=== PATIENT | female | born 2000 | race Caucasian/White ===

== ENCOUNTER 2024-07-10 08:12 | Emergency (ER) | payer OTHER, SELFPAY ==
--- NOTE | ~2024-07-10 | XR_ITS ---
EXAMINATION: XR CHEST CLINICAL INFORMATION: cp, cough COMPARISON: None available. TECHNIQUE: 2 views of the chest were obtained. FINDINGS: Left sided dual lead pacer in place with leads extending into the right atrium and right ventricle. There are abandoned epicardial leads. There has been prior repair of congenital heart disease. There is a stent within the region of the aortic outflow tract. There is a likely pulmonic valve replacement. There is cardiac enlargement. Mediastinal and hilar contours appear normal. The lungs are clear bilaterally. There is no pneumothorax or pleural effusion. There is no focal osseous or soft tissue abnormality. Prior remote sternotomy. XR/XR chest 2V IMPRESSION: 1. Dual-lead pacer in place. Cardiomegaly with sequela of prior surgical correction of congenital heart disease. 2. Lungs appear clear bilaterally. Electronically signed by: Jordan Whitfield MD 07/10/2024 09:16 AM [facility]
--- NOTE | 2024-07-10 08:14 | ECG_ITS ---
Test Reason : CHEST PAIN Blood Pressure : */* mmHG Vent. Rate : 71 BPM Atrial Rate : 71 BPM P-R Int : 164 ms QRS Dur : 124 ms QT Int : 452 ms P-R-T Axes : 43 70 60 degrees QTcB Int : 491 ms Atrial-sensed ventricular-paced rhythm Abnormal ECG No previous ECGs available Referred By: Generic ED Physician Electronically Signed By: CASSANDRA DOLAN MD
[2024-07-10 08:21] VITALS: BP 114/80; PULSE 68; RESP 20; TEMP 37.2; O2SAT 97; BMI 56.5
[2024-07-10 09:31] LABS: MANUAL DIFF FLAG NO
[2024-07-10 09:33] LABS: Basophils Absolute Auto 0.1 X10*3/uL (0.0-0.2); Basophils Percent Auto 1.1 % (0-2); Eosinophils Absolute Auto 0.1 X10*3/uL (0.0-0.4); Eosinophils Percent Auto 2.3 % (0-4); Hematocrit 40.4 % (37.0-47.0); Hemoglobin 13.1 g/dl (12.0-16.0); Imm Gran Abs Auto 0.02 X10*3/uL (0.00-0.03); Imm Gran Pct Auto 0.4 % (0.0-0.4); Lymphocytes Absolute Auto 0.5 X10*3/uL (1.2-4.9); Lymphocytes Percent Auto 11.5 % (20-40); Mean Corpuscular HGB Conc 32.4 g/dl (31.0-35.0); Mean Corpuscular Hemoglobin 26.8 pg (27.0-33.0); Mean Corpuscular Volume 82.8 fL (80.0-98.0); Mean Platelet Volume 12.2 fL (9.4-12.3); Monocytes Absolute Auto 0.6 X10*3/uL (0.1-1.2); Monocytes Percent Auto 11.9 % (2-11); Neutrophils Absolute Auto 3.4 x10*3/uL (2.0-8.3); Neutrophils Percent Auto 72.8 % (45-73); Platelet Count 196 X10*3/uL (160-400); Red Blood Count 4.88 X10*6/uL (4.20-5.50); Red Cell Distribution Width 15.5 % (11.0-16.0); White Blood Count 4.7 X10*3/uL (4.8-10.8)
[2024-07-10 09:51] LABS: Alanine Aminotransferase 40 U/L (0-31); Albumin Level 4.3 g/dL (3.5-5.0); Alkaline Phosphatase 36 U/L (39-117); Anion Gap 10 (12-20); Aspartate Amino Transferase 38 U/L (5-31); Bilirubin Total 0.4 mg/dL (0.0-1.0); Blood Urea Nitrogen 12 mg/dL (9-16); Calcium 8.8 mg/dL (8.4-10.2); Carbon Dioxide 23 mmol/L (22-29); Chloride 109 mmol/L (96-108); Creatinine Clr Calc Pharmacy 159.5; Estimated Glomerular Filt Rate > 60; Glucose Random 102 mg/dL (60-115); Potassium 4.2 mmol/L (3.3-5.1); Sodium 138 mmol/L (135-145); Total Protein 7.5 g/dL (6.5-8.0)
[2024-07-10 09:58] LABS: Troponin-I High Sensitivity 5.5 ng/L (<3.5-17.0)
[2024-07-10 10:24] LABS: Influenza A PCR POSITIVE (Negative); Influenza B PCR NEGATIVE (Negative); Resp Syncy Virus RNA Qual PCR NEGATIVE (Negative); SARS COV2 PCR INHOUSE NEGATIVE (Negative)
--- OUTSIDE RECORDS SUMMARY | 2024-07-10 10:30 | XMS_ITS | Encounter Summary ---
Author Organization [facility] Address [address] [place] [address] Care Team Providers Care Roll Repairer Name Role Phone Efrain Ortiz MD Primary Care Provider [phone] Encounter Details Date Type Department Care Team (Latest Contact Info) Description 06/27/2024 Anticoagulation - Warfarin [facility] [place] [address] Zo Santiago LPN H/O mechanical aortic valve replacement (Primary Dx) Social History Tobacco Use Types Packs/Day Years Used Date Smoking Tobacco: Never Smokeless Tobacco: Never Alcohol Use Standard Drinks/Week Comments Yes 0 (1 standard drink = 0.6 oz pur e alcohol) Comments Unknown Sex and Gender Information Value Date Recorded Sex Assigned at Not on file Legal Sex Female 11:01 AM EDT Gender Identity Not on file Sexual Orientation Not on file documented as of this encounter Plan of Treatment Not on file documented as of this encounter Visit Diagnoses Diagnosis H/O mechanical aortic valve replacement- Primary documented in this encounter Care Teams Roll Repairer Relationship Specialty Start Date End Date Efrain Ortiz MD [address] [place] [address] [address] [place] [address] PCP - General 10/11/23 documented as of this encounter
--- OUTSIDE RECORDS SUMMARY | 2024-07-10 10:30 | XMS_ITS | Encounter Summary ---
Author Organization [facility] Address [address] [place] [address] Care Team Providers Care Truck Farmer Name Role Phone Efrain Ortiz MD Primary Care Provider [phone] Encounter Details Date Type Department Care Team (Latest Contact Info) Description 06/11/2024 Anticoagulation - Warfarin [facility] [place] [address] Zo Santiago LPN H/O mechanical aortic valve [...] Primary documented in this encounter Care Teams Truck Farmer Relationship Specialty Start Date End Date Efrain Ortiz MD [address] [place] [address] [address] [place] [address] PCP - General 10/11/23 documented as of this encounter
--- OUTSIDE RECORDS SUMMARY | 2024-07-10 10:30 | XMS_ITS ---
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 Encounters Encounter Location Date Provider Diagnosis [id number] [facility] [address] [place], [place] [id number] 02/24/2023 KEITH PRICE Assessments Encounter Date Diagnosis (ICD Code) Assessment Notes Treatment Notes Treatment Clinical Notes Section Notes 02/24/2023 Other [facility] : Care Instructions material was printed Plan Of Treatment Treatment Notes Assessment Notes Other [facility]: Car e Instructions material was printed Progress Notes * Emma KELLERDOB:2000 ( 23 yo F)Acc No.[id number]:02/24/2023 PROGRESS NOTE Patient:Emma DALTON Provider:?Keith Price MD, FACS :2000???Age:22 Y???Sex:Female D ate:02/24/2023 ?N#:[id number] Address:[address], [place], [id number] Subjective: * Chief Complaints: * ???1. 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 * ROS:?See intake form dated 02-24-2023. * Medical History:?? Objective: * Vitals:? Assessment: Plan: * Treatment: * Care Plan Details* * This progress note has not b een verified nor is it considered complete until locked and signed by the provider. Sign off status: Pending * Provider:?Keith Pirce MD, FACS Date :?02/24/2023 Generated for John bartlett/Cruz/Charlyitting on:?07/10/2024 08:30 AM MST
--- OUTSIDE RECORDS SUMMARY | 2024-07-10 10:30 | XMS_ITS ---
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 * Medical History:?? Objective: * Vitals:? Assessment: Plan: * Treatment: * Care Plan Details* * This progress note has not b een verified nor is it considered complete until locked and signed by the provider. Sign off status: Pending * Provider:?Keith Price MD, FACS Date :?02/24/2023 Generated for John bartlett/Cruz/eTransmitting on:?07/10/2024 08:30 AM MST
--- OUTSIDE RECORDS SUMMARY | 2024-07-10 10:30 | XMS_ITS | Clinical Summary ---
Author Organization [facility] Address [address] [place] [address] Phone Care Team Providers Care Cut Off Saw Operator Metal Name Role Phone Efrain Ortiz MD Primary Care Provider [phone] Allergies Active Allergy Reactions Criticality Noted Date Comments Latex 12/15/2023 Nafcillin 07/06/2023 Hives Medications cholecalciferol (VITAMIN D-3) 50 mcg (2,000 unit) tablet Take 1 tablet (2,000 Units total) by mouth 1 (one) time each day. 4 Active enoxaparin (LOVENOX) 150 mg/mL injection Inject 130 mg as directed every 12 hours. 4 Active warfarin (COUMADIN) 5 mg tablet Take 1.5 mg by mouth See Admin Instructions. May cause heavy bleeding. Take at same time every day. Do not change dietary habits. Active fluconazole (DIFLUCAN) 150 mg tablet PLEASE SEE ATTACHED FOR DETAILED DIRECTIONS 4 Active norethindrone (JOSE,GUSTABO,HEAT HER,MICRONOR) 0.35 mg tablet Take 1 Tablet by mouth daily for 360 days. 4 025 Active famotidine (PEPCID) 40 mg tablet Take 1 tablet (40 mg total) by mouth 1 (one) time each day. Active PNV,calcium 72/iron/folic acid ( VITAMIN PLUS LOW IRON ORAL) Take 1 Tablet by mouth daily. Active ondansetron ODT (ZOFRAN-ODT) 4 mg disintegrating tablet Take 1 tablet (4 mg total) by mouth every 8 (eight) hours if needed. Active sertraline HCl (SERTRALINE ORAL) Take 1 Tablet by mouth daily. Active acetaminophen (TYLENOL) 500 mg tablet Take 1 tablet (500 mg total) by mouth every 6 (six) hours if needed. 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 Mixed hyperlipidemia 10/18/2023 Pacemaker 10/18/2023 Congenital heart disease 07/06/2023 Encounters Date Type Department Care Team Description 06/27/2024 Anticoagulation - [facility] [address] Zo Santiago LPN H/O mechanical aortic valve replacement (Primary Dx) 06/11/2024 [facility] - [facility] [address] Zo Santiago LPN H/O mechanical aortic valve replacement (Primary Dx) 06/04/2024 Anticoagulation - Warfarin [facility] [address] Zo Santiago LPN H/O mechanical aortic valve replacement (Primary Dx) 05/24/2024 9:30 AM EST Anticoagulation - Warfarin Visit [facility] [phone] H/O mechanical aortic valve replacement (Primary Dx) 05/21/2024 Anticoagulation - Warfarin [facility] [address] Zo Santiago LPN H/O mechanical aortic valve replacement (Primary Dx) 05/11/2024 Anticoagulation - Warfarin Visit [facility] - [place] [address] [place] [phone] Bettina Holland LPN H/O mechanical aortic valve replacement (Primary Dx) 05/02/2024 Anticoagulation - Warfarin [facility] [address] [place], [place] [address], [place] [phone] Zo Santiago LPN H/O mechanical aortic valve replacement (Primary Dx) 04/23/2024 10:30 AM EST Office Visit Walk-In Clinic [facility] [address] [place] [phone] Luz Varma NP COVID (Primary Dx); Upper respiratory tract infection, unspecified type 04/20/2024 Anticoagulation - Warfarin Visit Coumadin Clinic [facility] [address] [place] [phone] Zo Santiago LPN H/O mechanical aortic valve replacement (Primary Dx) 04/19/2024 Anticoagulation - Warfarin Visit Coumadin Clinic - [address] [phone] Zo Santiago LPN 04/18/2024 Telephone [facility] [phone] Zo Santiago LPN Abnormal Lab 04/18/2024 Anticoagulation - Warfarin Visit [facility] [address] [phone] Zo Santiago LPN H/O mechanical aortic valve replacement (Primary Dx) 04/11/2024 Anticoagulation - Warfarin Visit [facility] [address] [phone] oZ Santiago LPN H/O mechanical aortic valve replacement (Primary Dx) from Last 3 Months Immunizations Name Administration Dates Next Due Hepatitis B (Cciilga-C-Ankeo , Recombivax HB-Adult) 19yo and older 12/16/2023 Surgical History Surgery Date Site/Laterality Comments CARDIAC SURGERY N/A PROCEDURE: HISTORICAL HEART SURGERY(ASD,VSD,VALVES) OTHER SURGICAL HISTORY PROCEDURE: AL VASCULAR SURGERY SS; COMMENT: iliac artery surgery on 2015 Medical History Medical History Date Comments Class 3 severe obesity due t o excess calories without serious comorbidity with body mass index (BMI) of 50.0 to 59.9 in adult (CMS/HCC) 07/06/2023 DX:Class 3 severe obesity du e to excess calories without serious comorbidity with body mass index (BMI) of 50.0 to 59.9 in adult ([facility]) 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 Migraines DX:Migraines Family History Medical History Relation Name Comments Hyperthyroidism Mother Other: clottiing disorder Mother Lung cancer Paternal Grandfather Relation Name Status Comments Father Alive Maternal Grandfather Maternal Grandmother Alive Mother Alive Paternal Grandfather Paternal Grandmother Alive Social History Tobacco Use Types Packs/Day Years Used Date Smoking Tobacco: Never Smokeless Tobacco: Never Alcohol Use Standard Drinks/Week Comments Yes 0 (1 standard drink = 0.6 oz pur e alcohol) Housing Instability Answer Date Recorde d Are you worried that in the next 2 months you may not have stable housing? Unable to respond 07/09/2024 Food Access & Nutrition Answer Date Rec orded Do you have access to a vari ety of food including fruits and vegetables? Unable to respond 07/09/2024 Access to Healthcare Answer Date Record ed Within the last 3 months, nirmal doty many times did you visit the emergency department for your medical care? 1 07/09/2024 Health Literacy Answer Date Recorded How often do you need to hav e someone help you when you read instructions, pamphlets, or other written material from your doctor or pharmacy? Unable to respond 07/09/2024 Caregiver: How often do you need to have someone help you when you read instructions, pamphlets, or other written material from your doctor or pharmacy? Not on file 025 Financial Risk Answer Date Recorded How hard is it for you to pa y for the very basics like food, housing, medical care, and air conditioning / heating? Hard 07/09/2024 Transportation Answer Date Recorded Has the lack of transportati on kept you from meetings, work, or from getting things needed for daily living? Unable to respond 07/09/2024 Has the lack of transportati on kept you from medical appointments or from getting medications? Unable to respond 07/09/2024 Social Isolation Answer Date Recorded How often do you feel lonely or isolated from those around you? Unable to respond 07/09/2024 Food Risk Answer Date Recorded Within the past 12 months we worried whether our food would run out before we got money to buy more. Sometimes true 025 Within the past 12 months th e food we bought just didn't last and we didn't have money to get more. Patient declined 06/30 Dependent Care Answer Date Recorded Do you need help finding or paying for care for your loved ones. For example, child care education coordinator or elderly care for an older adult? Unable to respond 07/09/2024 Education Answer Date Recorded Do you think completing more education or training, like finishing a GED, going to college, or learning a trade, would be helpful for you? Unable to respond 07/09/2024 Employment and Income Answer Date Recor ded During the last four weeks, have you been actively looking for work? Unable to respond 07/09/2024 Living Situation Answer Date Recorded What is your living situation? 0 07/09/2024 Comments Unknown Sex and Gender Information Value Date Recorded Sex Assigned at Not on file Legal Sex Female 11:01 AM EDT Gender Identity Not on file Sexual Orientation Not on file Obstetrics History Last Filed Vital Signs Vital Sign Reading Time Taken Comments Blood Pressure 94/64 04/23/2024 10:27 AM EST Pulse 68 04/23/2024 10:27 AM EST Temperature 36.3 ??C (97.4 ??F) 04/23/2024 10:[address] Respiratory Rate 24 04/23/2024 10:27 AM EST Oxygen Saturation 97% 04/23/2024 10:27 AM EST Inhaled Oxygen Concentration - - Weight 136 kg (299 lb) 12/16/2023 10:38 AM EDT Height 160 cm (5' 3 ) 12/16/2023 10:38 AM EDT Body Mass Index 52.97 12/16/2023 10:38 AM EDT Plan of Treatment Health Maintenance Due Date Last Done Comments Cervical Cancer Screening: Pap Smear 11/28/2019 HIV Screening 12/23/2023 Depression Screening 01/28/2024 01/27/2023 COVID-19 Vaccine ( season) 2024 Social Influencers of Health Screening 07/09/2025 07/09/2024 Cholesterol Screening (Lipid Panel) 07/06/2028 07/06/2023 DTaP,Tdap,and Td Vaccines (7 - Td or Tdap) 08/17/2032 08/17/2022, 12/31/2009, 02/04/2004, Additional history exists HIB Vaccines Completed 03/01/2000, 05/30, 04/15/1999 Pneumococcal Vaccine: Pediatrics (0 to 5 Years) and At-Risk Patients (6 to 64 Years) Completed 06/20/2000, 03/01/2000 IPV Vaccines Completed 02/04/2004, 07/1999, 04/15/1999 MMR Vaccines Completed 02/04/2004, 12/11/1999 Varicella Vaccines Completed 12/20/2007, 12/11/1999 Hepatitis A Vaccines Completed 12/31/2009, 12/20/19 08 HPV Vaccines Completed 09/13/2012, 03/10/2012 Meningococcal ACWY Vaccine Completed 08/19/2017, Hepatitis C Screening Completed 10/11/2023, 022 Hepatitis B Vaccines Completed 12/16/2023, 06/09/2020, 09/01/1999, Additional history exists Influenza Vaccine Completed 01/24/2024, , 03/08/2016, Additional history exists Meningococcal B Vacine Aged Out No lo nger eligible based on patient's age to complete this topic RSV Immunization Patients Under 20 months Aged Out No longer eligible based on patient's age to complete this topic Procedures Procedure Name Priority Date/Time Associated Diagnosis Comments PROTHROMBIN TIME WITH INR Routine 06/27/2024 8:59 AM EST H/O mechanical aortic valve replacement PROTHROMBIN TIME WITH INR Routine 06/11/2024 10:21 AM EST H/O mechanical aortic valve replacement PROTHROMBIN TIME WITH INR Routine 06/01/2024 2:11 PM EST H/O mechanical aortic valve replacement POC PROTIME INR BLOOD Routine 05/24/2024 10:03 AM EST H/O mechanical aortic valve replacement PROTHROMBIN TIME WITH INR Routine 05/18/2024 4:48 PM EST H/O mechanical aortic valve replacement PROTHROMBIN TIME WITH INR Routine 05/10/2024 4:26 PM EST H/O mechanical aortic valve replacement PROTHROMBIN TIME WITH INR Routine 05/02/2024 8:49 AM EST H/O mechanical aortic valve replacement POC RAPID [id number], MOLECULAR Routine 04/23/2024 11:04 AM EST Upper respiratory tract infection, unspecified type POC PROTIME INR BLOOD Routine 04/20/2024 3:00 PM EST H/O mechanical aortic valve replacement PROTHROMBIN TIME WITH INR Routine 04/18/2024 9:07 AM EST H/O mechanical aortic valve replacement PROTHROMBIN TIME WITH INR Routine 04/11/2024 8:24 AM EST Encounter for long-term (current) use of medications HM HEPATITIS C SCREENING Routine 10/11/2023 LIPID PANEL Routine 07/06/2023 from Last 3 Months or Most Recently Relevant to Health Maintenance Results * (ABNORMAL) Prothrombin time with INR (06/27/2024 8:59 AM EST) Only the most recent of8 resultswithin the time period is included. Protime 42.4(H) 10.6 - 13.9 sec LAB COAGULATION METHOD 06/27/2024 10:17 AM EST [facility] INR 3.4 LAB COAGULATION METHOD 06/27/2024 10:17 AM EST [facility] Blood Venous blood specimen / Unknown Venipuncture / Unknown 06/27/2024 8:59 AM EST 06/27/2024 8:59 AM EST us Efrain Ortiz MD LAB BLOOD ORDERABLES Final Resul t [facility] [address] [place] [address], * POC Protime INR Blood (05/24/2024 10:03 AM EST) Only the most recent of2 resultswithin the time period is included. Lot Number INR POC 5.1 Prothrombin Time POC Exp Date Blood 05/24/2024 10:0 3 AM EST Dede Alonzo DO POINT OF CARE TEST ENTER/EDIT ORDERABLES Final Result * (ABNORMAL) Poc Rapid [id number], MOLECULAR (04/23/2024 11:04 AM EST) Pathologist [facility] COVID-19/SARS- COV-2 Rapid POC Positive(A ) Negative Internal Control Pass Yes Yes Swab Nasopharyngeal structure / Unknown 04/23/2024 11:04 AM EST Luz Varma CLAIM REVIEW MEDICAL DIRECTOR POINT OF CARE TEST ENTER/EDIT ORDERABLES Final Result * Hepatitis C Screening (10/11/2023) Pathologist [facility] Hepatitis C Screening abstracted Historical Provider HEALTH MAINTENANCE Final Result * (ABNORMAL) Lipid panel (07/06/2023) Pathologist [facility] LDL/HDL Ratio 3 0 - 4 Triglycerides 147 0 - 150 mg/dL Cholesterol 121 0 - 200 mg/dL HDL 36(A) >=40 mg/dL LDL Cholesterol 56 0 - 100 mg/dL Blood Venous blood specimen / Unknown Historical Provider LAB BLOOD ORDERABLES Giselle l Result from Last 3 Months or Most Recently Relevant to Health Maintenance Insurance MEDICAID - [place] Care Teams Cut Off Saw Operator Metal Relationship Specialty Start Date End Date Efrain Ortiz MD [address] [place] [id number] PCP - General 10/11/23
--- OUTSIDE RECORDS SUMMARY | 2024-07-10 10:30 | XMS_ITS | Patient Health Record ---
Author Organization [facility] Physician Wilbert es Billing Info Address [address] [place] [address] Support Name Relationship Address Phone Emma Keller Guarantor Unknown [phone] Reason For Referral No Information Plan Of Treatment No Information Insurance Providers Payer Name Payer Address Payer Phone Subscriber Number Group Number Insured Name Patient Relationship to Insured Coverage Start Date Coverage End Date [place] [address] [place], [place] [id number] Emma Keller Self - patient is the insured 3 3
--- OUTSIDE RECORDS SUMMARY | 2024-07-10 10:30 | XMS_ITS ---
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 * Medical History:?? Objective: * Vitals:? Assessment: Plan: * Treatment: * Care Plan Details* * This progress note has not b een verified nor is it considered complete until locked and signed by the provider. Sign off status: Pending * Provider:?Casimiro LOTT Date:?2022 Generated for John bartlett/Cruz/Charlyitting on:?07/10/2024 08:30 AM MST
--- NOTE | 2024-07-10 15:29 | ED.GENADULT ---
HPI - General Adult General Chief complaint: General Medical Stated complaint: Chest pain, SOB, migraine Time Seen by Provider: 07/10/24 15:27 Source: patient Mode of arrival: ambulatory Limitations: no limitations History of Present Illness ED Provider: Justin Hicks HPI narrative: 23-year-old female with pmh of congential heart disease presents to the ED for coughing, bodyaches, fever, chils, and migraine since tuesday. patient states her is sick also. patient denies any travel, surgery, pleurisy, leg swelling, or calf pain Related Data Allergies Allergy/AdvReac Type Severity Reaction Status Date / Time nafcillin AdvReac Hives Verified 07/10/24 08:25 Review of Systems Review of Systems: coughing, bodyaches, chest pain, fever/chills, migraine Yes all other systems are reviewed and are negative [facility] Social History Social History Advance Directives: No Advance Directives Information Provided: Yes Do you have a plan to hurt others: No Plan Physical Exam ED Vital Signs: Vital Signs - 24 hr 07/10/24 08:21 Temperature 99.0 F Pulse Rate 68 Respiratory Rate 20 Blood Pressure 114/80 Pulse Oximetry 97 Oxygen Delivery Method Room Air BMI result Body Mass Index 56.5 Const General: cooperative, healthy appearing, comfortable, no acute distress, well developed, alert and awake Orientation/consciousness: patient oriented x3 HENMT Head: Yes normal to inspection, Yes No palpable skull fracture present, Yes normocephalic and Yes atraumatic Ears: hearing grossly normal bilaterally, external ears normal, TM's normal bilaterally, TM normal on the right, TM normal on the left, EAC's normal, mastoids normal and no periauricular adenopathy Throat: Yes posterior oropharynx normal, Yes tonsils normal and Yes uvula midline Eyes General: appearance normal, both eyes and all related structures Neck Neck: Yes normal visual inspection, Yes full ROM, Yes no lymphadenopathy, Yes no meningeal signs, Yes trachea midline, Yes supple, No anterior neck swelling and No tender Chest Chest palpation & inspection: normal inspection of the chest and normal palpation of entire chest wall Resp Effort & Inspection: normal respiratory effort and able to speak in complete sentences Auscultation: clear to auscultation bilaterally Cardio Jugular venous distension: no JVD Heart sounds: S1 normal heart sound present and S2 normal heart sound present GI Inspection: Yes normal to inspection Palpation (GI): Soft to palpation, not firm, nontender, no guarding and not rigid General: Yes no CVA tenderness Back/Spine/Pelvis Back: no CVA tenderness and No back tenderness Skin General skin exam: no rashes or lesions noted, elasticity normal and turgor normal Neuro General: patient oriented x3, gait normal, tone normal, moves all extremities, Normal light touch and pain sensation, no meningeal signs, no focal motor deficits, CN's II-XI intact bilaterally and normal sensation to monofilament Extrem General: Yes normal to inspection, Yes full ROM and Yes capillary refill normal Psych Appearance: grossly normal, well kempt and not disheveled Medical Decision Making Medical Decision Making MDM Narrative: 23-year-old female with URI symptoms. Patient well-appearing. Patient has been in the ED for at least 6 hours. Patient's EKG atrial paced. First troponin negative after having symptoms since Tuesday. Not suspecting PE pericarditis, myocardittis, CHF, FL, cardiac tamponande, or any other life threatening etiology. Patient explained worrisome signs and informed to return to the ED immediately Differential Diagnosis Differential Diagnoses: The differential diagnosis associated with the presentation includes (Pneumonia, COVID, influenza RSV) Admission/Observation Consideration of admission/observation: Escalation of care including admission/observation considered Lab Data [facility] Lab Attestation statement: I reviewed the patient's lab results. 07/10/24 09:15 07/10/24 09:15 Labs: Lab Results 07/10/24 Range/Units 09:15 WBC 4.7 L (4.8-10.8) X10*3/uL RBC 4.88 (4.20-5.50) X10*6/uL Hgb 13.1 (12.0-16.0) g/dl Hct 40.4 (37.0-47.0) % MCV 82.8 (80.0-98.0) fL MCH 26.8 L (27.0-33.0) pg MCHC 32.4 (31.0-35.0) g/dl RDW 15.5 (11.0-16.0) % Plt Count 196 (160-400) X10*3/uL MPV 12.2 (9.4-12.3) fL Immature Gran % (Auto) 0.4 (0.0-0.4) % Neut % (Auto) 72.8 (45-73) % Lymph % (Auto) 11.5 L (20-40) % [place] % (Auto) 11.9 H (2-11) % Eos % (Auto) 2.3 (0-4) % Baso % (Auto) 1.1 (0-2) % Lymph # (Auto) 0.5 L (1.2-4.9) X10*3/uL [place] # (Auto) 0.6 (0.1-1.2) X10*3/uL Eos # (Auto) 0.1 (0.0-0.4) X10*3/uL Baso # (Auto) 0.1 (0.0-0.2) X10*3/uL Abs Immat Gran (auto) 0.02 (0.00-0.03) X10*3/uL Absolute Neuts (auto) 3.4 (2.0-8.3) x10*3/uL Absolute Nucleated RBC 0.000 (0.0-0.012) X10*3/uL Nucleated RBC % (auto) 0.0 (0.0-0.2) /100WBC Sodium 138 (135-145) mmol/L Potassium 4.2 (3.3-5.1) mmol/L Chloride 109 H (96-108) mmol/L Carbon Dioxide 23 (22-29) mmol/L Anion Gap 10 L (12-20) BUN 12 (9-16) mg/dL Creatinine 0.76 (0.5-1.4) mg/dL Estim Creat Clear Calc 159.5 Estimated GFR > 60 Random Glucose 102 (60-115) mg/dL Calcium 8.8 (8.4-10.2) mg/dL Total Bilirubin 0.4 (0.0-1.0) mg/dL AST 38 H (5-31) U/L ALT 40 H (0-31) U/L Alkaline Phosphatase 36 L (39-117) U/L Troponin I High Sens 5.5 (<3.5-17.0) ng/L Total Protein 7.5 (6.5-8.0) g/dL Albumin 4.3 (3.5-5.0) g/dL Influenza Type A (PCR) POSITIVE A (Negative) Influenza Type B (PCR) NEGATIVE (Negative) RSV RNA Qual (PCR) NEGATIVE (Negative) SARS-CoV-2 RNA (RT-PCR) NEGATIVE (Negative) Independent Interpretation I performed an independent interpretation of an: EKG (Atrial paced) and Plain X-Ray Radiology Impression Discussion of test interpretation with radiology: I have reviewed the radiologist's reading. Independent Historian Clinical information obtained from an independent historian. History obtained from or confirmed by: Other (Patient) Discharge Plan Discharge Clinical Impression: Influenza A Patient Disposition: Home, Self-Care Instructions: Influenza (ED) Additional Instructions: Recommend follow-up with your primary care provider. Return to the ED immediately for any chest pain, shortness of breath, weakness, dizziness, chest pain/shortness of breath on exertion, calf pain, leg swelling, chest pain on inspiration, slurred speech, facial droop, paralysis of extremities, loss of vision, or any other concerning symptoms. Stand Alone Forms: Work/School Release Discharge Date/Time: 07/10/24 15:39 Print Language: Mongolian
== END 2024-07-10 15:39 | disposition home or self-care (01) ==
PROVIDERS: Emergency Provider Emergency Medicine
DX: J10.1 Influenza due to other identified influenza virus with other respiratory manifestations (principal); R07.89 Other chest pain; R06.02 Shortness of breath; G43.909 Migraine, unspecified, not intractable, without status migrainosus; Z03.818 Encounter for observation for suspected exposure to other biological agents ruled out
CPT/HCPCS: 0241U; 71046; 80053; 84484; 85025; 93005; 99283

== ENCOUNTER → 2024-07-10 08:14 | Outpatient (BNV) | payer MEDICAID, SELFPAY | PROVIDERS: Visit Provider Internal Medicine Cardiovascular Disease | DX: I49.8 Other specified cardiac arrhythmias (principal) | CPT/HCPCS: 93010 ==

== ENCOUNTER → 2024-07-10 09:00 | Outpatient (BNV) | payer MEDICAID, SELFPAY | PROVIDERS: Visit Provider Radiology Diagnostic Radiology | DX: R07.9 Chest pain, unspecified (principal); R05.9 Cough, unspecified | CPT/HCPCS: 71046 ==

== ENCOUNTER 2024-07-27 07:03 | Emergency (ER) | payer OTHER, SELFPAY ==
[2024-07-27] VITALS (8 sets, daily range): BP systolic 89–121; BP diastolic 44–82; PULSE 67–77; RESP 15–25; TEMP 36.7–36.9; O2SAT 95–100; BMI 55.5
--- NOTE | ~2024-07-27 | CT_ITS ---
EXAMINATION: CT ABDOMEN AND PELVIS WITH CONTRAST CLINICAL INFORMATION: Lower abdominal pain. COMPARISON: None available. TECHNIQUE: Multidetector volumetric images were obtained from the superior aspect of the liver through the pubic symphysis following administration 85 mL of Omnipaque 350 intravenous contrast. Sagittal and coronal reformatted images were obtained on the technologist's workstation. Oral contrast: No This CT examination was performed using dose optimization techniques as appropriate, variously including the following: *Automated exposure control *Adjustment of mA and/or kV according to patient size (this includes techniques or standardized protocols for targeted exams where dose is matched to indication/reason for exam; i.e. extremities or head) *Use of iterative reconstruction technique DLP: 1318 mGy centimeter. FINDINGS: LUNG BASES: No acute airspace disease or gross pulmonary nodules. Electrode leads in the right heart chambers. LIVER, GALLBLADDER, AND BILIARY TREE: Liver measures 19 cm. Inadequate enhancement pattern. The main portal vein is patent. No intrahepatic biliary ductal dilatation. Status post cholecystectomy. No extrahepatic biliary ductal dilatation. PANCREAS: No focal lesion. No peripancreatic fluid collection. No main pancreatic ductal dilatation. SPLEEN: 11 cm. No focal lesion. ADRENAL GLANDS: No nodular lesions. KIDNEYS AND URETERS: No hydronephrosis. No gross nephrolithiasis. No gross renal lesion. BLADDER: Fluid-filled. GASTROINTESTINAL TRACT: There is a 1.2 cm square-shaped metallic/radiopaque foreign body in the duodenal bulb. Appendix is normal. Abundant stool. No intestinal obstruction pattern. No pneumatosis intestinalis. No pneumoperitoneum. No ascites. No peripheral enhancing fluid collection in the peritoneal cavity. ABDOMINAL WALL: Fat-containing umbilical hernia, moderate size with diastases of the abdominal rectus muscles. There are multifocal nodular fluid densities throughout the fat planes in the lower abdomen wall minutes the skin, the most conspicuous in the left lower abdominal wall. LYMPH NODES: No gross lymphadenopathy, mesenteric or retroperitoneal. 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 No aneurysm or dissection abdominal aorta. PELVIC VISCERA: There is a 5.5 cm complex lesion in the right adnexa with a 3 cm hyperdensity. OSSEOUS STRUCTURES: No acute fracture or listhesis in the axial skeleton. No acute fracture in the bony pelvis. CT/CT abdomen pelvis w IV con IMPRESSION: 1.2 cm rectangular shaped foreign body within the lumen of the duodenal bulb. Fat-containing umbilical hernia, moderate size with diastases abdominal rectus muscles. Multifocal soft tissue contusion/hematomas versus seroma in the fat planes of the abdominal wall superimposed infection cannot be excluded. 5.5 cm complex cystic lesion right adnexa. Hepatomegaly. Fleischner guidelines were followed. Electronically signed by: Agustín Baer MD 07/27/2024 11:25 AM [facility]
--- NOTE | ~2024-07-27 | US_ITS ---
EXAMINATION: Ultrasound pelvic organ Doppler. CLINICAL INFORMATION: Large right ovarian cyst. TECHNIQUE: Real-time transabdominal and transvaginal pelvic ultrasound using grayscale and color Doppler technique COMPARISON: Correlated to CT dated July 27, 2024. FINDINGS: Uterus measures 10 x 4 x 5 cm in anteversion flexion position with normal morphology and echotexture. Uterine volume: 93 cc. Endometrial stripe measures 11 mm. Right ovary measures 6 x 4 x 4 cm. Volume is 52 cc. There is a 3.2 cm complex anechoic lesion with a focal 2.7 cm isoechoic component. There is flow to the right ovary on color Doppler interrogation. Left ovary measures 2 x 1 x 2 cm. Volume is 3 cc. There is flow on color Doppler interrogation. Small amount of free fluid in the cul-de-sac. US/US pelvic ovarian doppler IMPRESSION: No ovarian torsion. 3.2 cm complex cystic lesion right ovary. Blood products versus Malignancy cannot be excluded. Normal uterus. Electronically signed by: Agustín Baer MD 07/27/2024 03:28 PM [facility]
--- NOTE | ~2024-07-27 | US_ITS ---
EXAMINATION: Ultrasound pelvic organ Doppler. CLINICAL INFORMATION: Large right ovarian cyst. TECHNIQUE: Real-time transabdominal and transvaginal pelvic ultrasound using grayscale and color Doppler technique COMPARISON: Correlated to CT dated July 27, 2024. FINDINGS: Uterus measures 10 x 4 x 5 cm in anteversion flexion position with normal morphology and echotexture. Uterine volume: 93 cc. Endometrial stripe measures 11 mm. Right ovary measures 6 x 4 x 4 cm. Volume is 52 cc. There is a 3.2 cm complex anechoic lesion with a focal 2.7 cm isoechoic component. There is flow to the right ovary on color Doppler interrogation. Left ovary measures 2 x 1 x 2 cm. Volume is 3 cc. There is flow on color Doppler interrogation. Small amount of free fluid in the cul-de-sac. US/US pelvic and transvaginal IMPRESSION: No ovarian torsion. 3.2 cm complex cystic lesion right ovary. Blood products versus Malignancy cannot be excluded. Normal uterus. Electronically signed by: Agustín Baer MD 07/27/2024 03:28 PM EST
--- NOTE | 2024-07-27 07:18 | ECG_ITS ---
Test Reason : epigastric Blood Pressure : */* mmHG Vent. Rate : 82 BPM Atrial Rate : 82 BPM P-R Int : 184 ms QRS Dur : 108 ms QT Int : 414 ms P-R-T Axes : 38 70 56 degrees QTcB Int : 483 ms Atrial-sensed ventricular-paced rhythm Abnormal ECG When compared with ECG of 10-Jul-2024 08:18, Vent. rate has increased by 11 bpm Referred By: Generic ED Physician Electronically Signed By: Bruno Uribe
--- OUTSIDE RECORDS SUMMARY | 2024-07-27 07:48 | XMS_ITS ---
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 Encounters Encounter Location Date Provider Diagnosis [id number] [facility] [address] [place], [place] [id number] 02/24/2023 KEITH PRICE Assessments Encounter Date Diagnosis (ICD Code) Assessment Notes Treatment Notes Treatment Clinical Notes Section Notes 02/24/2023 Other [facility] : Care Instructions material was printed Plan Of Treatment Treatment Notes Assessment Notes Other [facility]: Car e Instructions material was printed Progress Notes * Emma KELLERDOB:2000 ( 23 yo F)Acc No.[id number]:02/24/2023 PROGRESS NOTE Patient:Emma DALTON Provider:?Keith Price MD, FACS :2000???Age:22 Y???Sex:Female D ate:02/24/2023 ?N#:[id number] Address:[address], [place], [id number] Subjective: * Chief Complaints: * ???1. 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 * ROS:?See intake form dated 02-24-2023. * Medical History:?? Objective: * Vitals:? Assessment: Plan: * Treatment: * Care Plan Details* * This progress note has not b een verified nor is it considered complete until locked and signed by the provider. Sign off status: Pending * Provider:?Keith Price MD, FACS Date :?02/24/2023 Generated for John bartlett/Cruz/Charlyitting on:?07/27/2024 05:47 AM MST
--- OUTSIDE RECORDS SUMMARY | 2024-07-27 07:48 | XMS_ITS | Encounter Summary ---
Author Organization [facility] Address [address] [place] [address] Care Team Providers Care Motor Bike Mechanic Name Role Phone Efrain Ortiz MD Primary Care Provider [phone] Encounter Details Date Type Department Care Team (Latest Contact Info) Description 07/23/2024 Anticoagulation - Warfarin Visit Coumadin Clinic [facility] [address] [place] [address] Bettina Holland LPN H/O mechanical aortic valve [...] Record ed Within the last 3 months, ho w many times did you visit the emergency [...] for your loved ones. For example, child life therapist or elderly care for an older adult? [...] Primary documented in this encounter Care Teams Motor Bike Mechanic Relationship Specialty Start Date End Date Efrain Ortiz MD [address] [place] [address] PCP - General 10/11/23 documented as of this encounter
--- OUTSIDE RECORDS SUMMARY | 2024-07-27 07:48 | XMS_ITS | Encounter Summary ---
Author Organization [facility] Address [address] [place] [address] Care Team Providers Care Structural Technician Name Role Phone Efrain Ortiz MD Primary Care Provider [phone] Encounter Details Date Type Department Care Team (Latest Contact Info) Description 06/27/2024 Anticoagulation - Warfarin Visit [facility] [place] [address] [place] [address] Zo Santiago LPN H/O mechanical aortic valve [...] care for your loved ones. For example, children's author or elderly care for an older adult? [...] Primary documented in this encounter Care Teams Structural Technician Relationship Specialty Start Date End Date Efrain Ortiz MD [address] [facility] [address] [place] [address] PCP - General 10/11/23 documented as of this encounter
--- OUTSIDE RECORDS SUMMARY | 2024-07-27 07:48 | XMS_ITS | Encounter Summary ---
Author Organization [facility] Address [address] [place] [address] Care Team Providers Care Tax Manager Cpa Name Role Phone Efrain Ortiz MD Primary Care Provider [phone] Reason for Visit * Reason Comments Follow-up Encounter Details Date Type Department Care Team ([facility] st Contact Info) Description 07/18/2024 2:30 PM EST Office Visit Internal Medicine - [place] [address] [facility] [address] [place] [id number] Dagoberto Stovall MD [address] [facility] [address] [place] [address] Congenital heart disease (Primary Dx); Pacemaker Social History Tobacco Use Types Packs/Day Years [...] for your loved ones. For example, children's lunchroom supervisor or elderly care for an older adult? [...] on file documented as of this encounter Last Filed Vital Signs Vital Sign Reading Time Taken Comments Blood Pressure 102/68 07/18/2024 2:50 PM EST Pulse 82 07/18/2024 2:50 PM EST Temperature 35.8 ??C (96.4 ??F) 07/18/2024 2:50 PM ES T Respiratory Rate - - Oxygen Saturation 98% 07/18/2024 2:50 PM EST Inhaled Oxygen Concentration - - Weight 139 kg (306 lb 6.4 oz) 07/18/2024 2:50 PM EST Height - - Body Mass Index 54.28 12/16/2023 10:38 AM EDT documented in this encounter Ordered Prescriptions Prescription Sig Dispense Quantity Refills Last Filled Start Date End Date amoxicillin (AMOXIL) 500 mg capsule Take 4 capsules (2,000 mg total) by mouth 1 (one) time for 1 dose. Take 1 hour prior to procedure. 4 each 07/18/2024 5 documented in this encounter Progress Notes * Dagoberto Stovall MD - 07/18/2024 2:30 PM EST COMPLAINT prophylactic antibiotics IDENTIFIER: Emma Keller is a 23 y.o. old female. HPI: Plan to have dental cleaning procedure done next week. Has a history of congenital heart surgery asa child. 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 Mixed hyperlipidemia 10/18/2023 Pacemaker 10/18/2023 Congenital heart disease 07/06/2023 Past Surgical History: Procedure Laterality Date CARDIAC SURGERY N/A PROCEDURE: HISTORICAL HEART SURGERY(ASD,VSD,VALVES) OTHER SURGICAL HISTORY PROCEDURE: SD VASCULAR SURGERY SS; COMMENT: iliac artery surgery on 2015 SOCIAL HISTORY: Social History Tobacco Use Smoking status: Never Smokeless tobacco: Never Substance Use Topics Alcohol use: Yes FAMILY HISTORY: Family History Problem Relation Name Age of Onset Lung cancer Paternal Grandfather Hyperthyroidism Mother Other (Other: clottiing disorder) Mother MEDICATIONS DISCONTINUED/REORDERED: There are no discontinued medications. ACTIVE MEDICATIONS: Outpatient Medications Marked as Taking for the 07/18/24 encounter (Office Visit) with Dagoberto Stovall MD Medication Sig Dispense Refill acetaminophen (TYLENOL) 500 mg tablet Take 1 tablet (500 mg total) by mouth every 6 (six) hours if needed. cholecalciferol (VITAMIN D-3) 50 mcg (2,000 unit) tablet Take 1 tablet (2,000 Units total) by mouth1 (one) time each day. enoxaparin (LOVENOX) 150 mg/mL injection Inject 130 mg as directed every 12 hours. famotidine (PEPCID) 40 mg tablet Take 1 tablet (40 mg total) by mouth 1 (one) time each day. fluconazole (DIFLUCAN) 150 mg tablet PLEASE SEE ATTACHED FOR DETAILED DIRECTIONS ondansetron ODT (ZOFRAN-ODT) 4 mg disintegrating tablet Take 1 tablet (4 mg total) by mouth every 8(eight) hours if needed. PNV,calcium 72/iron/folic acid ( VITAMIN PLUS LOW IRON ORAL) Take 1 Tablet by mouth daily. sertraline HCl (SERTRALINE ORAL) Take 1 Tablet by mouth daily. warfarin (COUMADIN) 5 mg tablet Take 1.5 mg by mouth See Admin Instructions. May cause heavy bleeding. Take at same time every day. Do not change dietary habits. ALLERGIES: Allergies Allergen Reactions Latex Nafcillin Hives PHYSICAL EXAM: Vitals: 07/18/24 1450 BP: 102/68 Pulse: 82 Temp: 35.8 ??C (96.4 ??F) SpO2: 98% APPEARANCE: Alert and in no acute distress EARS: External ears normal. LABS: No results found for: WBC , HGB , HCT , MCV No results found for: NA , K , CO2 , CL , BUN , GLU , ALB , ALKPHOS , TP No results found for: TSH Lab Results Component Value Date HGBA1C 5.2 07/06/2023 CHOL 121 07/06/2023 LDL 56 07/06/2023 HDL 36 (A) 07/06/2023 TRIG 147 07/06/2023 No components found for: URINELEUK , URINENITR , URINEPRO , URINEPH , URINEBLD , URINESG , URINEKET , URINEBILI , URINEGLUC IMAGING: IMPRESSION: 1. Congenital heart disease 2. Pacemaker PLAN: Amoxicillin called in for prophylaxis dental cleaning. Okay to continue warfarin and aspirin. documented in this encounter Plan of Treatment Not on file documented as of this encounter Visit Diagnoses Diagnosis Congenital heart disease- Primary Unspecified congenital anomaly of heart Pacemaker Cardiac pacemaker in situ documented in this encounter Care Teams Tax Manager Cpa Relationship Specialty Start Date End Date Efrain Ortiz MD [address] [place] [address] PCP - General 10/11/23 documented as of this encounter
--- OUTSIDE RECORDS SUMMARY | 2024-07-27 07:48 | XMS_ITS | Encounter Summary ---
Author Organization [facility] Address [address] [place] [address] Care Team Providers Care House Decorator Name Role Phone Efrain Ortiz MD Primary Care Provider [phone] Encounter Details Date Type Department Care Team (Latest Contact Info) Description 07/13/2024 Anticoagulation - Warfarin Visit Coumadin Clinic [facility] [address] [place] [address] Bettina Holland LPN H/O mechanical [...] your loved ones. For example, child care attendant school or elderly care for an older adult? [...] Primary documented in this encounter Care Teams House Decorator Relationship Specialty Start Date End Date Efrain Ortiz MD [address] [place] [address] PCP - General 10/11/23 documented as of this encounter
--- OUTSIDE RECORDS SUMMARY | 2024-07-27 07:48 | XMS_ITS | Patient Health Record ---
Author Organization [facility] Physician Wilbert es Billing Info Address [address] [place] [id number] Support Name Relationship Address Phone Emma Keller Guarantor Unknown [phone] Reason For Referral No Information Plan Of Treatment No Information Insurance Providers Payer Name Payer Address Payer Phone Subscriber Number Group Number Insured Name Patient Relationship to Insured Coverage Start Date Coverage End Date [place] [address] [place], [place] [id number] Emma Keller Self - patient is the insured 3 3
--- OUTSIDE RECORDS SUMMARY | 2024-07-27 07:48 | XMS_ITS | Clinical Summary ---
Author Organization 175 [facility] Address [address] [place] [address] Phone Care Team Providers Care Hotel Administrative Assistant Name Role Phone Efrain Ortiz MD Primary Care Provider [phone] Allergies Active Allergy Reactions Criticality Noted Date Comments Latex 12/15/2023 Nafcillin 07/06/2023 Hives Medications cholecalciferol (VITAMIN D-3) 50 mcg (2,000 unit) tablet Take 1 tablet (2,000 Units total) by mouth 1 (one) time each day. 07/06/19 24 Active enoxaparin (LOVENOX) 150 mg/mL injection Inject 130 mg as directed every 12 hours. 12/13/19 24 Active fluconazole (DIFLUCAN) 150 mg tablet PLEASE SEE ATTACHED FOR DETAILED DIRECTIONS 11/25/19 24 Active norethindrone (JOSE,GUSTABO,HEA THER,MICRONOR) 0.35 mg tablet Take 1 Tablet by mouth daily for 360 days. 12/15/19 24 2024 Active famotidine (PEPCID) 40 mg tablet Take [...] every 6 (six) hours if needed. Active warfarin (COUMADIN) 5 mg tablet Take 1 tablet (5 mg total) by mouth 1 (one) time each day. 180 tablet 1 07/19/19 Active warfarin (COUMADIN) 5 mg tablet Take 1.5 mg by mouth See Admin Instructions. May cause heavy bleeding. Take at same time every day. Do not change dietary habits. 2024 Discontinued amoxicillin (AMOXIL) 500 mg capsule Take 1 capsule (500 mg total) by mouth 1 (one) time for 1 dose. 2 each 07/16/19 25 2024 amoxicillin (AMOXIL) 500 mg capsule Take 4 capsules (2,000 mg total) by mouth 1 (one) time for 1 dose. Take 1 hour prior to procedure. 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 [address] [place] [phone] Bettina Holland LPN H/O mechanical aortic valve replacement (Primary Dx) 07/18/2024 2:30 PM EST Office Visit Internal Medicine [facility] 175 [facility] [address] [place] [phone] Dagoberto Stovall MD Congenital heart disease (Primary Dx); Pacemaker 07/13/2024 Telephone [facility] [address] [phone] Bettina Holland LPN 07/13/2024 Anticoagulation - Warfarin Visit Coumadin Clinic [facility] [address] [place] [phone] Bettina Holland LPN H/O mechanical aortic valve replacement (Primary Dx) 06/27/2024 Anticoagulation - Warfarin Visit [facility] [address] [phone] Zo Santiago LPN H/O mechanical aortic valve replacement (Primary Dx) 06/11/2024 [facility] [address] [phone] Zo Santiago LPN H/O mechanical aortic valve replacement (Primary Dx) 06/04/2024 Anticoagulation - Warfarin Visit Coumadin Clinic - [address] [phone] Zo Santiago LPN H/O mechanical aortic valve replacement (Primary Dx) 05/24/2024 9:30 AM EST [facility]tico[facility] - [facility] [address] [phone] H/O mechanical aortic valve replacement (Primary Dx) 05/21/2024 [facility]ticoagulation - [facility] [address] [phone] Zo Santiago LPN H/O mechanical aortic valve replacement (Primary Dx) 05/11/2024 [facility] [address] [place] [phone] Bettina Holland LPN H/O mechanical aortic valve replacement (Primary Dx) 05/02/2024 Anticoagulation - [facility] [phone] Zo Santiago LPN H/O mechanical aortic valve replacement (Primary Dx) from Last 3 Months Immunizations Name Administration Dates Next Due Hepatitis B (Exwrwhc-F-Vssbv , Recombivax HB-Adult) 19yo and older 12/16/2023 Surgical History Surgery Date Site/Laterality Comments CARDIAC SURGERY N/A PROCEDURE: HISTORICAL HEART SURGERY(ASD,VSD,VALVES) OTHER SURGICAL HISTORY PROCEDURE: LA VASCULAR SURGERY SS; COMMENT: iliac artery surgery on 2016 Medical History Medical History Date Comments Class 3 severe obesity due t o excess calories without serious comorbidity with body mass index (BMI) of 50.0 to 59.9 in adult ([facility]) 07/06/2023 DX:Class 3 severe obesity du e to excess calories without serious comorbidity with body mass index (BMI) of 50.0 to 59.9 in adult ([facility]) 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 [...] your loved ones. For example, child care director or elderly care for an older adult? [...] 07/18/2024 2:50 PM ES T Respiratory Rate 24 04/23/2024 10:27 AM EST Oxygen Saturation 98% 07/18/2024 2:50 PM EST Inhaled Oxygen Concentration - - Weight 139 kg (306 lb 6.4 oz) 07/18/2024 2:50 PM EST Height 160 cm (5' 3 ) 12/16/2023 10:38 AM EDT Body Mass Index 54.28 12/16/2023 10:38 AM EDT Plan of Treatment [...] Diagnosis Comments PROTHROMBIN TIME WITH INR Routine 07/26/2024 4:34 PM EST H/O mechanical aortic valve replacement PROTHROMBIN TIME WITH INR Routine 07/20/2024 4:00 PM EST H/O mechanical aortic valve replacement PROTHROMBIN TIME WITH INR Routine 07/13/2024 2:07 PM EST H/O mechanical aortic valve replacement PROTHROMBIN TIME WITH INR Routine 06/27/2024 8:59 [...] AM EST H/O mechanical aortic valve replacement HM HEPATITIS C SCREENING Routine 10/11/2023 LIPID PANEL Routine 07/06/2023 from Last 3 Months or Most Recently Relevant to Health Maintenance Results * (ABNORMAL) Prothrombin time with INR (07/26/2024 4:34 PM EST) Only the most recent of9 resultswithin the time period is included. Protime 50.8(H) 10.6 - 13.9 sec LAB COAGULATION METHOD 07/26/2024 6:39 PM EST [facility] INR 4.2 LAB COAGULATION METHOD 07/26/2024 6:39 PM EST [facility] Blood Venous blood specimen / Unknown Venipuncture / Unknown 07/26/2024 4:34 PM EST 07/26/2024 4:34 PM EST us Efrain Ortiz MD LAB BLOOD ORDERABLES Final Resul t [facility] [address] [place] [address], [place] [phone] * POC Protime INR Blood (05/24/2024 10:03 AM EST) Lot Number INR POC 5.1 Prothrombin Time POC Exp Date Blood 05/24/2024 10:0 3 AM EST Dede Alonzo DO POINT OF CARE TEST ENTER/EDIT ORDERABLES Final Result * Hepatitis C Screening (10/11/2023) Hepatitis C Screening abstracted Historical Provider HEALTH MAINTENANCE Final Result * (ABNORMAL) Lipid panel (07/06/2023) LDL/HDL Ratio 3 0 - 4 Triglycerides 147 0 - 150 mg/dL Cholesterol 121 0 - 200 mg/dL HDL 36(A) >=40 mg/dL LDL Cholesterol 56 0 - 100 mg/dL Blood Venous blood specimen / Unknown Historical Provider LAB BLOOD ORDERABLES Giselle l Result from Last 3 Months or Most Recently Relevant to Health Maintenance Insurance MEDICAID - [place] Care Teams Hotel Administrative Assistant Relationship Specialty Start Date End Date Efrain Ortiz MD [address] [facility] [address] [place] [address] PCP - General 10/11/23
--- OUTSIDE RECORDS SUMMARY | 2024-07-27 07:48 | XMS_ITS | Encounter Summary ---
Author Organization [facility] Address [address] [place] [address] Care Team Providers Care Car Porter Name Role Phone Efrain Ortiz MD Primary Care Provider [phone] Encounter Details Date Type Department Care Team ([facility] st Contact Info) Description 07/13/[address] [phone] Bettina Holland LPN Social History Tobacco Use Types Packs/Day Years [...] for your loved ones. For example, child development assistant or elderly care for an older adult? [...] on file documented as of this encounter Progress Notes * Bettina Holland LPN - 07/13/2024 4:00 PM EST error documented in this encounter Plan of Treatment Not on file documented as of this encounter Visit Diagnoses Not on filedocumented in this encounter Care Teams Car Porter Relationship Specialty Start Date End Date Efrain Ortiz MD [address] [place] [address] PCP - General 10/11/23 documented as of this encounter
--- OUTSIDE RECORDS SUMMARY | 2024-07-27 07:48 | XMS_ITS ---
Author Organization [facility] Billing Info Address [address] [place] [address] Care Team Providers Care Clothing Patternmaker Name Role Phone AFTAB PABLO Unavailable [phone] REASON FOR VISIT CONSERVATION ASSISTANT EARS AE Encounters Encounter Location Date Provider Diagnosis [id number] [facility] [address] [place], [place] [id number] 02/24/2023 AFTAB PABLO Plan Of Treatment No Information Progress Notes * Emma KELLERDOB:2000 ( 23 yo F)Acc No.[id number]:02/24/2023 CONSULT NOTE Patient:?Emma KELLER Provider:?Casimiro LOTT :2000???Age:22 Y???Sex:Female D ate:02/24/2023 ?CHN#:[id number] Address:[address], [place], [phone] Subjective: * Chief Complaints: * ???1. 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 * Medical History:?? Objective: * Vitals:? Assessment: Plan: * Treatment: * Care Plan Details* * This progress note has not b een verified nor is it considered complete until locked and signed by the provider. Sign off status: Pending * Provider:?Casimiro LOTT Date:?2022 Generated for oJhn bartlett/Cruz/Charlyitting on:?07/27/2024 05:47 AM MST
--- OUTSIDE RECORDS SUMMARY | 2024-07-27 07:48 | XMS_ITS ---
Author Organization [facility] Billing Info Address [address] [place] [address] Care Team Providers Care Division Sales Manager Name Role Phone KEITH PRICE Unavailable [phone] REASON FOR VISIT CLAIM TRAINEE EARS AE Encounters Encounter Location Date Provider Diagnosis [id number] [facility] [address] [place], [place] [id number] 02/24/2023 KEITH PRICE Plan Of Treatment No Information Progress Notes * Emma KELLERDOB:2000 ( 23 yo F)Acc No.[id number]:02/24/2023 PROGRESS NOTE Patient:?Emma KELLER Provider:?Keith Price MD, FACS :2000???Age:22 Y???Sex:Female D ate:02/24/2023 ?CHN#:[id number] Address:[address], [place], [id number] Subjective: * Chief Complaints: * ???1. CLAIM TRAINEE EARS AE. * Medical History:?? Objective: * Vitals:? Assessment: Plan: * Treatment: * Care Plan Details* * This progress note has not b een verified nor is it considered complete until locked and signed by the provider. Sign off status: Pending * Provider:?Keith Price MD, FACS Date :?02/24/2023 Generated for John bartlett/Cruz/eTransmitting on:?07/27/2024 05:47 AM MST
[2024-07-27 08:30] LABS: Influenza A PCR NEGATIVE (Negative); Influenza B PCR NEGATIVE (Negative); Resp Syncy Virus RNA Qual PCR NEGATIVE (Negative); SARS COV2 PCR INHOUSE NEGATIVE (Negative)
[2024-07-27 08:42] LABS: INTERNATIONAL NORM RATIO 3.3 (0.9-1.1); Prothrombin Time 38.8 SEC (10.9-12.4)
[2024-07-27 08:50] LABS: Alanine Aminotransferase 40 U/L (0-31); Alkaline Phosphatase 32 U/L (39-117); Anion Gap 10 (12-20); Aspartate Amino Transferase 40 U/L (5-31); Bilirubin Direct 0.1 mg/dL (0.0-0.5); Bilirubin Total 0.4 mg/dL (0.0-1.0); Blood Urea Nitrogen 15 mg/dL (9-16); Calcium 8.7 mg/dL (8.4-10.2); Carbon Dioxide 23 mmol/L (22-29); Chloride 111 mmol/L (96-108); Creatinine Clr Calc Pharmacy 155.7; Estimated Glomerular Filt Rate > 60; Glucose Random 93 mg/dL (60-115); Lipase 23 U/L (8-78); Potassium 4.2 mmol/L (3.3-5.1); Sodium 140 mmol/L (135-145); Total Protein 7.1 g/dL (6.5-8.0)
[2024-07-27 09:03] LABS: Troponin-I High Sensitivity < 2.7 ng/L (<3.5-17.0)
[2024-07-27 09:16] LABS: Basophils Percent Auto 0.6 % (0-2); Eosinophils Percent Auto 0.4 % (0-4); Hematocrit 37.7 % (37.0-47.0); Hemoglobin 12.5 g/dl (12.0-16.0); Imm Gran Abs Auto 0.01 X10*3/uL (0.00-0.03); Imm Gran Pct Auto 0.2 % (0.0-0.4); Lymphocytes Absolute Auto 0.7 X10*3/uL (1.2-4.9); Lymphocytes Percent Auto 13.7 % (20-40); Mean Corpuscular HGB Conc 33.2 g/dl (31.0-35.0); Mean Corpuscular Hemoglobin 27.4 pg (27.0-33.0); Mean Corpuscular Volume 82.7 fL (80.0-98.0); Monocytes Absolute Auto 0.4 X10*3/uL (0.1-1.2); Neutrophils Percent Auto 77.1 % (45-73); Platelet Count 196 X10*3/uL (160-400); Red Blood Count 4.56 X10*6/uL (4.20-5.50); Red Cell Distribution Width 15.2 % (11.0-16.0); White Blood Count 5.2 X10*3/uL (4.8-10.8)
--- NOTE | 2024-07-27 09:22 | ED_ITS ---
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 States that her INR has been subtherapeutic so she was instructed to increased her warfarin and also add lovenox in the am. She increased her warfarin to 10mg Tuesday-Tue, as well as taking lovenox. Yesterday had INR checked and it was 4.2 so she only took 5mg warfarin yesterday. States she has had bruising due to the lovenox, and her pain began after several firm areas of bruising popped. Pain then began radiating to her epigastric area. She vomited x 3 and describes emesis as mostly saliva. Denies diarrhea. Denies fevers/chills/body aches. Denies any abnormal vaginal discharge or bleeding and denies concern for STIs. Follows with [facility] for cardiology. complaint: abdominal pain Onset (ago): day(s) Location: abdomen Related Data Allergies Allergy/AdvReac Type Severity Reaction Status Date / Time nafcillin AdvReac Hives Verified 07/27/24 07:08 Review of Systems 2 Review of Systems: As per HPI Yes all other systems are reviewed and are negative Constitutional: Constitutional: Reports as per HPI [facility] Social History Social History Advance Directives: No Advance Directives Information Provided: Yes Do you have a plan to hurt others: No Plan Physical Exam ED Vital Signs: Vital Signs - 24 hr 07/27/24 07:06 07/27/24 09:09 07/27/24 09:19 Temperature 98.0 F 98.2 F 98.2 F Pulse Rate 77 72 70 Respiratory Rate 20 25 H 20 Blood Pressure 115/82 89/44 L 115/70 Pulse Oximetry 97 95 98 Oxygen Delivery Method Room Air Room Air Room Air 07/27/24 11:22 07/27/24 12:25 07/27/24 15:39 Temperature 98.4 F 98.5 F 98.1 F Pulse Rate 68 70 67 Respiratory Rate 19 16 15 Blood Pressure 113/80 107/69 115/71 Pulse Oximetry 100 99 100 Oxygen Delivery Method Room Air Room Air Room Air BMI result Body Mass Index 55.5 Vital signs have been reviewed and appear to be correct. Blood pressure normal. Heart rate normal. Respiratory rate normal. Temperature normal. Oxygen saturation normal. Const General: cooperative, healthy appearing and no acute distress Nutritional Appearance: obese Orientation/consciousness: oriented to person, oriented to place, oriented to time and patient oriented x3 Limitations: no limitations HENMT Head: Yes normocephalic and Yes atraumatic Ears: external ears normal General nose exam: Normal external nose present Face and sinus: Yes face symmetric Mouth: oropharynx normal and moist mucous membranes Throat: Yes uvula midline Eyes Pupils: Equal, round and reactive pupils present Neck Neck: Yes normal visual inspection and Yes supple Resp Effort & Inspection: normal respiratory effort and able to speak in complete sentences Auscultation: clear to auscultation bilaterally Cardio Rate: regular rate Rhythm: regular rhythm Heart sounds: S1 normal heart sound present and S2 normal heart sound present GI Inspection: Yes abdominal wall ecchymosis (multiple areas of ecchymosis from lovenox) and Yes scar (from lap gabbi) Palpation (GI): Soft to palpation, Tenderness to palpation present (GI) in the epigastrum and in the RLQ, no guarding and No Rebound tenderness present Auscultation: normoactive bowel sounds General: Yes no CVA tenderness Back/Spine/Pelvis Back: no CVA tenderness Skin General skin exam: elasticity normal and turgor normal Neuro General: oriented to person, oriented to place, oriented to time, patient oriented x3, moves all extremities, no focal motor deficits and CN's II-XI intact bilaterally Cranial nerves: Yes Equal, round and reactive pupils present Cognition (Neuro): normal cognition Extrem General: Yes full ROM, Yes no pedal edema and Yes no calf tenderness Psych Mental Status: mental status grossly normal Affect: normal affect Thought process: Normal thought process present Medications Administered Discontinued Medications Generic Name Dose Route Start Last Admin Trade Name Freq PRN Reason Stop Dose Admin Iohexol 100 ml 07/27/24 10:42 07/27/24 10:42 Iohexol 350 Mg/Ml 100 Ml Infus..Btl IV 07/27/24 10:43 85 ml ONCE ONE Administration Morphine Sulfate 4 mg 07/27/24 09:35 07/27/24 09:54 Morphine Sulfate 4 Mg/Ml Cartridge IVPUSH 07/27/24 09:36 4 mg ONCE ONE Administration Protocol Ondansetron HCl 4 mg 07/27/24 09:35 07/27/24 09:54 Ondansetron Hcl 4 Mg/2 Ml Vial IVPUSH 07/27/24 09:36 4 mg ONCE ONE Administration Medical Decision Making Medical Decision Making [facility] Narrative: Patient is a 23-year-old female with history of cholecystectomy, 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 On exam patient is awake, A+Ox3, VS WNL, afebrile, normal neurological exam without focal deficits, physical exam findings as above. Given reported symptoms and physical exam findings, initial differential includes but is not limited to abdominal wall hematoma, active bleeding, ovarian cyst or torsion. Labs unremarkable, INR in therapeutic range. CT A/P notable for 1.2cm rectangular foreign body within lumen of duodenal bulb. Case discussed with Dr. Castro who feels this is likely a biliary stent. Patient then confirmed via past medical records that the FB is, in fact, related to her cholecystoectomy. CT A/P also notes 5.5 cm complex cystic lesion to right adnexa. Ultrasound shows no evidence of torsion, but notes 3.2cm cystic lesion to right ovary, blood products versus malignancy. My interpretation is in agreement with the radiologist's interpretation. Results discussed with patient and all questions answered. Patient states that she does have an OBGYN through [facility]. Instructed patient to follow-up with her OBGYN within the next 2 days. Return precautions discussed at bedside. Patient states pain has resolved while in the ED. patient verbalized understanding of and agreement with plan. Differential Diagnosis Differential Diagnoses: The differential diagnosis associated with the presentation includes As per [facility] Admission/Observation Consideration of admission/observation: Escalation of care including admission/observation considered Patient would have been admitted to the hospital had their work up had any findings where hospital admission was appropriate and their clinical presentation warranted hospital admission. Consult Healthcare Provider Management of the patient was discussed with: Household Appliances Service Technician (Dr. Castro) Lab Data [facility] Lab Attestation statement: I reviewed the patient's lab results. As per [facility] 07/27/24 08:59 07/27/24 08:24 Labs: Lab Results 07/27/24 07/27/24 07/27/24 Range/Units 07:38 08:24 08:59 WBC 5.2 (4.8-10.8) X10*3/uL RBC 4.56 (4.20-5.50) X10*6/uL Hgb 12.5 (12.0-16.0) g/dl Hct 37.7 (37.0-47.0) % MCV 82.7 (80.0-98.0) fL MCH 27.4 (27.0-33.0) pg MCHC 33.2 (31.0-35.0) g/dl RDW 15.2 (11.0-16.0) % Plt Count 196 (160-400) X10*3/uL MPV 12.0 (9.4-12.3) fL Immature Gran % (Auto) 0.2 (0.0-0.4) % Neut % (Auto) 77.1 H (45-73) % Lymph % (Auto) 13.7 L (20-40) % [place] % (Auto) 8.0 (2-11) % Eos % (Auto) 0.4 (0-4) % Baso % (Auto) 0.6 (0-2) % Lymph # (Auto) 0.7 L (1.2-4.9) X10*3/uL [place] # (Auto) 0.4 (0.1-1.2) X10*3/uL Eos # (Auto) 0.0 (0.0-0.4) X10*3/uL Baso # (Auto) 0.0 (0.0-0.2) X10*3/uL Abs Immat Gran (auto) 0.01 (0.00-0.03) X10*3/uL Absolute Neuts (auto) 4.0 (2.0-8.3) x10*3/uL Absolute Nucleated RBC 0.000 (0.0-0.012) X10*3/uL Nucleated RBC % (auto) 0.0 (0.0-0.2) /100WBC PT 38.8 H (10.9-12.4) SEC INR 3.3 H (0.9-1.1) Sodium 140 (135-145) mmol/L Potassium 4.2 (3.3-5.1) mmol/L Chloride 111 H (96-108) mmol/L Carbon Dioxide 23 (22-29) mmol/L Anion Gap 10 L (12-20) BUN 15 (9-16) mg/dL Creatinine 0.77 (0.5-1.4) mg/dL Estim Creat Clear Calc 155.7 Estimated GFR > 60 Random Glucose 93 (60-115) mg/dL Calcium 8.7 (8.4-10.2) mg/dL Total Bilirubin 0.4 (0.0-1.0) mg/dL Direct Bilirubin 0.1 (0.0-0.5) mg/dL AST 40 H (5-31) U/L ALT 40 H (0-31) U/L Alkaline Phosphatase 32 L (39-117) U/L Troponin I High Sens < 2.7 D (<3.5-17.0) ng/L Total Protein 7.1 (6.5-8.0) g/dL Albumin 4.0 (3.5-5.0) g/dL Lipase 23 (8-78) U/L Beta HCG, Quant < 2 mIU/mL Influenza Type A (PCR) NEGATIVE (Negative) Influenza Type B (PCR) NEGATIVE (Negative) RSV RNA Qual (PCR) NEGATIVE (Negative) SARS-CoV-2 RNA (RT-PCR) NEGATIVE (Negative) Independent Interpretation I performed an independent interpretation of an: Ultrasound and CT Scan Interpretation: CT A/P notable for 1.2cm rectangular foreign body within lumen of duodenal bulb. Case discussed with Dr. Castro who feels this is likely a biliary stent. Patient then confirmed via past medical records that the FB is, in fact, related to her cholecystoectomy. CT A/P also notes 5.5 cm complex cystic lesion to right adnexa. Ultrasound shows no evidence of torsion, but notes 3.2cm cystic lesion to right ovary, blood products versus malignancy. Radiology Impression Discussion of test interpretation with radiology: I have reviewed the radiologist's reading. Radiologist Impression: US/US pelvic ovarian doppler IMPRESSION: No ovarian torsion. 3.2 cm complex cystic lesion right ovary. Blood products versus Malignancy cannot be excluded. Normal uterus. CT/CT abdomen pelvis w IV con IMPRESSION: 1.2 cm rectangular shaped foreign body within the lumen of the duodenal bulb. Fat-containing umbilical hernia, moderate size with diastases abdominal rectus muscles. Multifocal soft tissue contusion/hematomas versus seroma in the fat planes of the abdominal wall superimposed infection cannot be excluded. 5.5 cm complex cystic lesion right adnexa. Hepatomegaly. External Record Review External record reviewed: Inpatient record, Office record and Outpatient record Discharge Plan Discharge Clinical Impression: Abdominal pain, Ovarian cyst Patient Disposition: Home, Self-Care Instructions: Abdominal Pain (ED), Ovarian Cyst (ED), Ovarian Cyst Removal (DC) Additional Instructions: You were evaluated in the emergency department today for abdominal pain. Your ultrasound showed a complex cystic lesion to your right ovary. We recommend that you follow up with your [employer]IEF OF POLICE for further evaluation of this within the next 2 days. Follow up with your primary care provider as well. Return to the emergency department if you develop worsening pain, persistent vomiting, fever, or any other new or concerning symptoms. EXAMINATION: Ultrasound pelvic organ Doppler. CLINICAL INFORMATION: Large right ovarian cyst. TECHNIQUE: Real-time transabdominal and transvaginal pelvic ultrasound using grayscale and color Doppler technique COMPARISON: Correlated to CT dated July 27, 2024. FINDINGS: Uterus measures 10 x 4 x 5 cm in anteversion flexion position with normal morphology and echotexture. Uterine volume: 93 cc. Endometrial stripe measures 11 mm. Right ovary measures 6 x 4 x 4 cm. Volume is 52 cc. There is a 3.2 cm complex anechoic lesion with a focal 2.7 cm isoechoic component. There is flow to the right ovary on color Doppler interrogation. Left ovary measures 2 x 1 x 2 cm. Volume is 3 cc. There is flow on color Doppler interrogation. Small amount of free fluid in the cul-de-sac. US/US pelvic ovarian doppler IMPRESSION: No ovarian torsion. 3.2 cm complex cystic lesion right ovary. Blood products versus Malignancy cannot be excluded. Normal uterus. Print Language: Argentine
[2024-07-27] MEDS: ondansetron HCL 4 MG/2 ML VIAL IVPUSH (09:54)
[2024-07-27] MEDS: Morphine Sulfate 4 MG/ML CARTRIDGE IVPUSH (09:54)
[2024-07-27 10:16] LABS: HCG Quantitative < 2 mIU/mL
[2024-07-27] MEDS: iohexoL 350 MG/ML 100 ML INFUS..BTL IV (10:42)
--- NOTE | 2024-07-27 15:30 | PC.NURSE ---
Report taken from Daysi Escobedo RN
== END 2024-07-27 16:42 | disposition home or self-care (01) ==
PROVIDERS: Registered Nurse Emergency; Emergency Provider Emergency Medicine; PCP Student in an Organized Health Care Education/Training Program
DX: N83.201 Unspecified ovarian cyst, right side (principal); R10.30 Lower abdominal pain, unspecified; R11.2 Nausea with vomiting, unspecified; R10.13 Epigastric pain; R94.31 Abnormal electrocardiogram [ECG] [EKG]; Z03.818 Encounter for observation for suspected exposure to other biological agents ruled out; Z79.01 Long term (current) use of anticoagulants; Z79.899 Other long term (current) drug therapy
CPT/HCPCS: 0241U; 36415; 74177; 76830; 76856; 80048; 80076; 83690; 84484; 84702; 85025; 85610; 93005; 93975; 96374; 96375; 99284; 99285; J2270; J2405; Q9967

== ENCOUNTER → 2024-07-27 07:18 | Outpatient (BNV) | payer OTHER, SELFPAY | PROVIDERS: Emergency Provider Emergency Medicine; PCP Student in an Organized Health Care Education/Training Program; Visit Provider Internal Medicine Cardiovascular Disease | DX: R94.31 Abnormal electrocardiogram [ECG] [EKG] (principal); R10.9 Unspecified abdominal pain | CPT/HCPCS: 93010 ==

== ENCOUNTER → 2024-07-27 09:35 | Outpatient (BNV) | payer OTHER, SELFPAY | PROVIDERS: Emergency Provider Emergency Medicine; PCP Student in an Organized Health Care Education/Training Program; Visit Provider Radiology Diagnostic Radiology | DX: N83.201 Unspecified ovarian cyst, right side (principal) | CPT/HCPCS: 74177; 76830; 76856; 93975 ==

== ENCOUNTER 2024-11-03 14:53 | Emergency (ER) | payer OTHER, SELFPAY ==
--- NOTE | ~2024-11-03 | CT_ITS ---
CLINICAL HISTORY: L pelvic flanpain ?fluid collect v blood products CT ABDOMEN AND PELVIS WITH CONTRAST Comparison: CT/TX/SR - CT ABDOMEN PELVIS W IV CON - 07/27/24 10:23 EST Findings: No basilar consolidation or pleural effusion. Cardiac pacing wire artifact. There are no acute abnormalities in the solid organs. No urolithiasis. Stable nonspecific 8 mm right renal cortical hypodensity. The liver is enlarged with the right hepatic lobe measuring 19 cm on coronal image 85. There is surface nodularity which can be seen with cirrhotic morphology. Normal spleen size and configuration. Cholecystectomy. No AAA. No bowel obstruction, pneumoperitoneum, or pneumatosis. No organized fluid collection. No significant mesenteric or paracolic edema. There are multiple irregular soft tissue densities in the ventral subcutaneous tissues likely related to injections. There is a 4 cm fat containing periumbilical hernia. The appendix is identified. No acute appendicitis. Anteverted uterus. CT appearance of the right ovary unremarkable. There is a 3.0 x 1.8 x 2.5 cm hypoattenuated lesion in the left ovary. Small amount of free fluid in the posterior cul-de-sac. Urinary bladder unremarkable. The bones are intact. IMPRESSION: 1. No obstructive or acute inflammatory changes in the gastrointestinal and genitourinary tracts. 2. Hypoattenuated lesion in the left ovary most likely represents a 3 cm complex cyst. 3. Small amount of free fluid in the pelvis. 4. Additional findings as above. This document has been electronically signed by: Henrietta Tirado DO on 11/03/2024 19:35:28
--- NOTE | ~2024-11-03 | US_ITS ---
CLINICAL HISTORY: L pelvic pain hx cysts US PELVIS TRANSABDOMINAL AND TRANSVAGINAL Comparison: CT/SR - CT ABDOMEN PELVIS W IV CON - 11/03/24 18:19 EDT Findings: Transabdominal scanning performed for overall anatomy. Transvaginal scanning performed for additional detail. Anteverted uterus is 9.2 cm length. Normal myometrium. Endometrium 12 mm thickness. Multiple small nabothian cysts in the cervix. Right ovary 2.6 x 1.9 x 1.9 cm. There are multiple small follicles. Left ovary 3.9 x 3.5 x 3.2 cm. There is an irregular hypoechoic lesion which measures 3.4 x 3.4 x 2.8 cm. Normal color Doppler of both ovaries. Small amount of free fluid in the posterior cul-de-sac demonstrates internal echoes consistent with complexity. IMPRESSION: 1. 3.4 cm involuting or ruptured cyst in the left ovary is associated with a small amount of complex free fluid in the pelvis which may contain blood byproducts. 2. Color flow observed in the bilateral ovaries. This document has been electronically signed by: Henrietta Tirado DO on 11/03/2024 19:50:46
--- NOTE | ~2024-11-03 | US_ITS ---
CLINICAL HISTORY: L CVAT US RENAL Comparison: None Findings: Right kidney length is 11.1 cm. Left kidney length is 10.5 cm. No hydronephrosis, shadowing calculus or cortical mass lesion. IMPRESSION: No hydronephrosis or nephrolithiasis. This document has been electronically signed by: Henrietta Tirado DO on 11/03/2024 19:40:36
--- NOTE | 2024-11-03 15:49 | ED.ABDPAIN ---
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 The pain is located in the left side of her pelvis and radiates to her left lower back. She says the pain did not wake her from sleep. Pain is currently 8/10 however waxes/ wanes in severity. The pain is worse with movement. She tried Tylenol this morning with minimal improvement in pain. Reports associated nausea but denies vomiting. Last bowel movement was this morning and was normal. Last menstrual period was 10/18/24 and lasted 4 days. Denies vaginal discharge or bleeding since. Denies dysuria or urinary frequency. She is currently sexually active with her and uses protection. Denies concern for STDs. Reports she had a similar episode in June that brought her to the ED. She states a large cyst was found on her ovary and she was told to follow up with a lawn mower operator. She last saw her lawn mower operator in July and the cyst was noted to be decreasing in size. She reports her lawn mower operator told her not to worry about the cyst and to follow up in 8 months for a repeat ultrasound. Related Data Previous Rx's ?Medication ?Instructions ?Recorded morphine 15 mg immediate release 15 mg PO Q8H PRN pain (scale score 11/03/24 tablet 7-10) 2 days #6 tabs ondansetron 4 mg disintegrating 4 mg PO DAILY PRN nausea and 11/03/24 tablet vomiting 5 days #7 tabs Allergies Allergy/AdvReac Type Severity Reaction Status Date / Time nafcillin AdvReac Hives Verified 11/03/24 15:52 Review of Systems Review of Systems Constitutional: No fever, chills, fatigue, night sweats, weight changes ENT/Mouth: No ear pain, hearing loss, nasal congestion, sinus pain, rhinorrhea, sore throat Eyes: No eye pain, swelling, redness, vision changes, discharge Cardio: No chest pain, palpitations, MATHUR, orthopnea, peripheral edema Pulm: No SOB, cough, sputum, wheezing, dyspnea, hemoptysis GI: No nausea, vomiting, hematemesis, abdominal pain, diarrhea, constipation, hematochezia, melena : No irregular bleeding, dysuria, frequency, urgency, hesitancy, hematuria, flank pain, urinary flow changes, urinary incontinence or retention, +pelvic pain MSK: No back pain, neck pain, joint pain, myalgias Skin: No lesions, rashes Neuro: No weakness, numbness, paresthesias, LOC, dizziness, headache Psych: No anxiety/panic, depression, SI/HI, AH/VH All other systems reviewed and are negative. [facility] Past Medical History Attestation statement: The following information was validated with the patient. Source: old records reviewed and nursing notes reviewed Social History Social History Smoked in Last 30 Days: No Advance Directives: No Advance Directives Information Provided: No Patient : No Physical Exam ED Vital Signs: Vital Signs - 24 hr 11/03/24 15:50 11/03/24 18:00 11/03/24 19:16 Temperature 98.1 F Pulse Rate 75 70 64 Respiratory Rate 18 18 18 Blood Pressure 96/66 101/65 105/66 Pulse Oximetry 98 98 98 Oxygen Delivery Method Room Air Room Air 11/03/24 20:43 Temperature 98 F Pulse Rate 64 Respiratory Rate 18 Blood Pressure 105/66 Pulse Oximetry 98 Oxygen Delivery Method Room Air BMI result Body Mass Index 55.8 vital signs are stable. afebrile. General: uncomfortable appearing however in NAD Skin: Warm, dry, intact. No rashes or lesions. Head: Normocephalic, atraumatic. EENT: Conjunctiva clear. Sclera is anicteric. PERRLA. Moist mucous membranes.? Neck: Supple without LAD Cardiac: Chest wall symmetric. RRR. No MRG. Lungs: Normal respiratory effort without accessory muscle use. CTA bilaterally. Abdomen: obese abdomen, soft, ND, TTP of left lower quadrant without rebound or guarding. no palpable masses. Positive BS x4. : pelvic exam deferred Back: No midline spinous or paraspinal tenderness. No CVA tenderness. Ext: Capillary refill <2 seconds in all extremities. Pulses 2+ equal and bilateral. Neuro: AOx3. Normal speech. Psych: Appropriate mood and affect. Responds appropriately to questions. Course Course Course Narrative: This is a Rapid Medical Exam performed in triage by Ruth Malik PA-C. Full HPI, ROS and PE to be performed by primary ED provider. 23 yo F presenting to the ED c/o left sided pelvic pain rad to back and side x this AM. Dull constant pain but sharp pain comes and goes. LMP 2 wks ago. +nausea. denies vomiting, urinary sx, vaginal bleeding/d/c PE: uncomfortable, in wheelchair, abdomen lower abd & L CVAT Plan: labs, UA, US Reevaluation(s) Reevaluation #1: CBC without leukocytosis or left shift. No anemia, h&h stable. Chemistry without acute electrolyte abnormality requiring intervention. BUN 18, creatinine 0.82. liver function at baseline.? Beta HCG undetectable - not . Urine without infection or blood. B/l renal US unremarkable.? Pelvic US showing 3.4 cm involuting or ruptured cyst in the left ovary is associated with?a small amount of complex free fluid in the pelvis which may contain blood? byproducts. color flow observed in the bilateral ovaries. Ct a/p showing redemonstration of cyst w/ small amount of free fluid. > I do not have concern for active bleed. likely cyst v follicular rupture. discussed results with patient. treated w/ morphine + dilaudid w/ good effect. appears comfortable. 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 patient is agreeable. discussed w/ my attending dr. acevedo who agrees w/ plan. Patient has remained stable throughout ED visit today. Discussed worrisome signs and symptoms and when to return to the ED. All questions answered at this time. Patient is agreeable with disposition and stable for discharge. 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 Presentation is most concerning for ovarian cyst v rupture v torsion. Differential diagnosis includes includes TOA, PID, and other infectious causes but patient has no constitutional symptoms of infection. Ectopic is on the differential but unlikely. Also includes UTI, pyelo, endometriosis, adenomyosis but these are less likely. Doubt appendicitis or other primary gastrointestinal process. Plan: labs, UA, pelvic US, consider CT scan, pain control, fluid resuscitation, reassessment Differential Diagnosis Differential Diagnoses: The differential diagnosis associated with the presentation includes as above. Admission/Observation not indicated. Lab Data MDM Lab Attestation statement: I reviewed the patient's lab results. as above. 11/03/24 16:13 11/03/24 16:13 Labs: Lab Results 11/03/24 11/03/24 Range/Units 16:13 16:59 WBC 6.2 (4.8-10.8) X10*3/uL RBC 4.71 (4.20-5.50) X10*6/uL Hgb 13.3 (12.0-16.0) g/dl Hct 40.0 (37.0-47.0) % MCV 84.9 (80.0-98.0) fL MCH 28.2 (27.0-33.0) pg MCHC 33.3 (31.0-35.0) g/dl RDW 14.1 (11.0-16.0) % Plt Count 226 (160-400) X10*3/uL MPV 12.4 H (9.4-12.3) fL Immature Gran % (Auto) 0.5 H (0.0-0.4) % Neut % (Auto) 70.7 (45-73) % Lymph % (Auto) 18.1 L (20-40) % [place] % (Auto) 8.9 (2-11) % Eos % (Auto) 1.0 (0-4) % Baso % (Auto) 0.8 (0-2) % Lymph # (Auto) 1.1 L (1.2-4.9) X10*3/uL [place] # (Auto) 0.6 (0.1-1.2) X10*3/uL Eos # (Auto) 0.1 (0.0-0.4) X10*3/uL Baso # (Auto) 0.1 (0.0-0.2) X10*3/uL Abs Immat Gran (auto) 0.03 (0.00-0.03) X10*3/uL Absolute Neuts (auto) 4.4 (2.0-8.3) x10*3/uL Absolute Nucleated RBC 0.000 (0.0-0.012) X10*3/uL Nucleated RBC % (auto) 0.0 (0.0-0.2) /100WBC Sodium 142 (135-145) mmol/L Potassium 3.8 (3.3-5.1) mmol/L Chloride 109 H (96-108) mmol/L Carbon Dioxide 24 (22-29) mmol/L Anion Gap 13 (12-20) BUN 18 H (9-16) mg/dL Creatinine 0.82 (0.5-1.4) mg/dL Estim Creat Clear Calc 146.6 Estimated GFR > 60 Random Glucose 108 (60-115) mg/dL Calcium 9.2 (8.4-10.2) mg/dL Magnesium 1.9 (1.6-2.6) mg/dL Total Bilirubin 0.4 (0.0-1.0) mg/dL Direct Bilirubin 0.1 (0.0-0.5) mg/dL AST 31 (5-31) U/L ALT 33 H (0-31) U/L Alkaline Phosphatase 31 L (39-117) U/L Total Protein 6.8 (6.5-8.0) g/dL Albumin 4.5 (3.5-5.0) g/dL Lipase 29 (8-78) U/L Beta HCG, Quant < 2 mIU/mL Urine Color Yellow Urine Appearance Clear Urine pH 6.0 (5.0-9.0) Ur Specific [place] 1.025 (1.005-1.025) Urine Protein Negative (Neg-Trace) mg/dL Urine Glucose (UA) Negative (Negative) mg/dL Urine Ketones Trace (Negative) mg/dL Urine Blood Negative (Negative) Urine Nitrite Negative (Negative) Ur Leukocyte Esterase Negative (Negative) Urine Test NEGATIVE (NEGATIVE) Independent Interpretation I performed an independent interpretation of an: Ultrasound and CT Scan Interpretation: pelvic US showing doppler flow to L ovary renal US without noted stones ct a/p showing cyst to L ovary Radiology Impression Discussion of test interpretation with radiology: I have reviewed the radiologist's reading. Radiologist Impression: Date of Service: 11/03/24 Procedure(s): US pelvic and transvaginal Accession Number(s): [id number] cc: Efrain Ortiz MD; Ruth Malik~ CLINICAL HISTORY: L pelvic pain hx cysts US PELVIS TRANSABDOMINAL AND TRANSVAGINAL Comparison: CT/SR - CT ABDOMEN PELVIS W IV CON - 11/03/24 18:19 EDT Findings: Transabdominal scanning performed for overall anatomy. Transvaginal scanning performed for additional detail. Anteverted uterus is 9.2 cm length. Normal myometrium. Endometrium 12 mm thickness. Multiple small nabothian cysts in the cervix. Right ovary 2.6 x 1.9 x 1.9 cm. There are multiple small follicles. Left ovary 3.9 x 3.5 x 3.2 cm. There is an irregular hypoechoic lesion which measures 3.4 x 3.4 x 2.8 cm. Normal color Doppler of both ovaries. Small amount of free fluid in the posterior cul-de-sac demonstrates internal echoes consistent with complexity. IMPRESSION: 1. 3.4 cm involuting or ruptured cyst in the left ovary is associated with a small amount of complex free fluid in the pelvis which may contain blood byproducts. 2. Color flow observed in the bilateral ovaries. This document has been electronically signed by: Henrietta Tirado DO on 11/03/2024 19:50:46 Date of Service: 11/03/24 Procedure(s): US renal BI Accession Number(s): [id number] cc: Efrain Ortiz MD; Ruth Malik~ CLINICAL HISTORY: L CVAT US RENAL Comparison: None Findings: Right kidney length is 11.1 cm. Left kidney length is 10.5 cm. No hydronephrosis, shadowing calculus or cortical mass lesion. IMPRESSION: No hydronephrosis or nephrolithiasis. This document has been electronically signed by: Henrietta Tirado DO on 11/03/2024 19:40:36 Date of Service: 11/03/24 Procedure(s): CT abdomen pelvis w IV con Accession Number(s): [id number] cc: Efrain Ortiz MD; Jesusita Valdez~ Report Number: [id number]: Total DLP = 0.00 mGy-cm CLINICAL HISTORY: L pelvic flanpain ?fluid collect v blood products CT ABDOMEN AND PELVIS WITH CONTRAST Comparison: CT/MS/SR - CT ABDOMEN PELVIS W IV CON - 07/27/24 10:23 EST Findings: No basilar consolidation or pleural effusion. Cardiac pacing wire artifact. There are no acute abnormalities in the solid organs. No urolithiasis. Stable nonspecific 8 mm right renal cortical hypodensity. The liver is enlarged with the right hepatic lobe measuring 19 cm on coronal image 85. There is surface nodularity which can be seen with cirrhotic morphology. Normal spleen size and configuration. Cholecystectomy. No AAA. No bowel obstruction, pneumoperitoneum, or pneumatosis. No organized fluid collection. No significant mesenteric or paracolic edema. There are multiple irregular soft tissue densities in the ventral subcutaneous tissues likely related to injections. There is a 4 cm fat containing periumbilical hernia. The appendix is identified. No acute appendicitis. Anteverted uterus. CT appearance of the right ovary unremarkable. There is a 3.0 x 1.8 x 2.5 cm hypoattenuated lesion in the left ovary. Small amount of free fluid in the posterior cul-de-sac. Urinary bladder unremarkable. The bones are intact. IMPRESSION: 1. No obstructive or acute inflammatory changes in the gastrointestinal and genitourinary tracts. 2. Hypoattenuated lesion in the left ovary most likely represents a 3 cm complex cyst. 3. Small amount of free fluid in the pelvis. 4. Additional findings as above. This document has been electronically signed by: Henrietta Tirado DO on 11/03/2024 19:35:28 External Record Review External record reviewed: Inpatient record, Office record, Outpatient record, Prior outpatient labs and Prior outpatient radiology Prescription Management I considered prescription management with: Pain Medication Chronic Conditions Patient?s care impacted by: Other (ovarian cysts) Social Determinants Patient?s care significantly limited by Social Determinants of Health including: Other Social Determinant of Health Medications Administered Discontinued Medications Generic Name Dose Route Start Last Admin Trade Name Freq PRN Reason Stop Dose Admin Hydromorphone HCl 1 mg 11/03/24 19:54 11/03/24 20:08 Hydromorphone Hcl 1 Mg/Ml Syringe IVPUSH 11/03/24 19:55 1 mg ONCE ONE Administration Protocol Sodium Chloride 1,000 mls @ 999 mls/hr 11/03/24 17:45 11/03/24 19:11 Ns IV 11/03/24 18:45 Infused .Q1H1M DUANE Infusion Iohexol 100 ml 11/03/24 18:23 11/03/24 18:24 Iohexol 350 Mg/Ml 100 Ml Infus..Btl IV 11/03/24 18:24 100 ml ONCE ONE Administration Morphine Sulfate 4 mg 11/03/24 17:45 11/03/24 18:09 Morphine Sulfate 4 Mg/Ml Cartridge IVPUSH 11/03/24 17:46 4 mg ONCE ONE Administration Protocol Critical Care Time Critical Care Time Critical Care Time: Yes Total Critical Care Time: 32 Attestation: Critical care time in the amount of 32 minutes has been provided to the patient in terms of direct patient care, frequent reevaluation on IV morphine/ dilaudid, review and interpretation of medical data and results, and management of potentially life-threatening conditions. This is all outside of any medical procedures. Discharge Plan Discharge Clinical Impression: Ovarian cyst Patient Disposition: Home, Self-Care Instructions: Ovarian Cyst (ED) Additional Instructions: You were evaluated in the ED today for pelvic pain. Your blood work today is reassuring. Your urine is negative for infection and . The ultrasound of your pelvis shows a 3.5 cm cyst to your left ovary without evidence of torsion. There is a small amount of free fluid in your pelvis which may be associated to recent ovarian cyst rupture. The ultrasound of your kidneys are normal without evidence of obstructing stone. The CT scan of your abdomen re-demonstrates a 3 cm cyst to your right ovary with small amount of free fluid in your pelvis. Your pain was treated in the ED today. I am sending Zofran to your pharmacy for you to take as needed for nausea or vomiting. Please take tylenol as needed for pain control. I am sending morphine (a controlled pain medication) to your pharmacy for you to take as needed for breakthrough pain. Please follow up with your lawn mower operator out patient. Return with any new or worsening symptoms. In the case of an emergency call 911. Prescriptions: New ondansetron 4 mg tablet,disintegrating 4 mg PO DAILY PRN (Reason: nausea and vomiting) 5 Days Qty: 7 0RF morphine 15 mg tablet 15 mg PO Q8H PRN (Reason: pain (scale score 7-10)) 2 Days Qty: 6 0RF Rx Instructions: Partial Fill upon patient request. Referrals: Efrain Ortiz MD [Primary Care Provider] - Nasrin Mcmanus DO [Physician] - 5 days (ovarian cysts, pelvic pain) Stand Alone Forms: Work/School Release Interventions: ED Discharge Assessment Last Done: 11/03/24 20:43 Discharge Date/Time: 11/03/24 20:54 Print Language: [place]an
[2024-11-03 15:50] VITALS: BP 96/66; PULSE 75; RESP 18; O2SAT 98; BMI 55.8
[2024-11-03 16:18] LABS: MANUAL DIFF FLAG NO
[2024-11-03 16:38] LABS: Alanine Aminotransferase 33 U/L (0-31); Albumin Level 4.5 g/dL (3.5-5.0); Anion Gap 13 (12-20); Aspartate Amino Transferase 31 U/L (5-31); Bilirubin Direct 0.1 mg/dL (0.0-0.5); Bilirubin Total 0.4 mg/dL (0.0-1.0); Blood Urea Nitrogen 18 mg/dL (9-16); Calcium 9.2 mg/dL (8.4-10.2); Carbon Dioxide 24 mmol/L (22-29); Chloride 109 mmol/L (96-108); Creatinine Clr Calc Pharmacy 146.6; Estimated Glomerular Filt Rate > 60; Glucose Random 108 mg/dL (60-115); Lipase 29 U/L (8-78); Magnesium 1.9 mg/dL (1.6-2.6); Potassium 3.8 mmol/L (3.3-5.1); Sodium 142 mmol/L (135-145); Total Protein 6.8 g/dL (6.5-8.0)
[2024-11-03 16:42] LABS: HCG Quantitative < 2 mIU/mL
[2024-11-03 16:53] LABS: Basophils Absolute Auto 0.1 X10*3/uL (0.0-0.2); Basophils Percent Auto 0.8 % (0-2); Eosinophils Absolute Auto 0.1 X10*3/uL (0.0-0.4); Hemoglobin 13.3 g/dl (12.0-16.0); Imm Gran Abs Auto 0.03 X10*3/uL (0.00-0.03); Imm Gran Pct Auto 0.5 % (0.0-0.4); Lymphocytes Absolute Auto 1.1 X10*3/uL (1.2-4.9); Lymphocytes Percent Auto 18.1 % (20-40); Mean Corpuscular HGB Conc 33.3 g/dl (31.0-35.0); Mean Corpuscular Hemoglobin 28.2 pg (27.0-33.0); Mean Corpuscular Volume 84.9 fL (80.0-98.0); Mean Platelet Volume 12.4 fL (9.4-12.3); Monocytes Absolute Auto 0.6 X10*3/uL (0.1-1.2); Monocytes Percent Auto 8.9 % (2-11); Neutrophils Absolute Auto 4.4 x10*3/uL (2.0-8.3); Neutrophils Percent Auto 70.7 % (45-73); Platelet Count 226 X10*3/uL (160-400); Red Blood Count 4.71 X10*6/uL (4.20-5.50); Red Cell Distribution Width 14.1 % (11.0-16.0); White Blood Count 6.2 X10*3/uL (4.8-10.8)
[2024-11-03 17:06] LABS: Appearance Urine Clear; Color Urine Yellow; Glucose Urine UA Negative (Negative); Leukocyte Esterase Urine Negative (Negative); Nitrite Urine Negative (Negative); Specific Gravity - Urine 1.025 (1.005-1.025); Urine Blood Negative (Negative); Urine Ketones Trace mg/dL (Negative); Urine Protein Negative (Neg-Trace)
[2024-11-03 17:07] LABS: UPreg QC Valid YES; Urine Pregnancy NEGATIVE (NEGATIVE)
[2024-11-03 18:00] VITALS: BP 101/65; PULSE 70; RESP 18; TEMP 36.7; O2SAT 98
[2024-11-03] MEDS: 0.9 % Sodium Chloride 1,000 ML 999 ML IV (18:06)
[2024-11-03] MEDS: Morphine Sulfate 4 MG/ML CARTRIDGE IVPUSH (18:09)
[2024-11-03] MEDS: iohexoL 350 MG/ML 100 ML INFUS..BTL IV (18:24)
[2024-11-03 18:46] LABS: Alkaline Phosphatase 31 U/L (39-117)
[2024-11-03 19:16] VITALS: BP 105/66; PULSE 64; RESP 18; O2SAT 98
[2024-11-03] MEDS: HYDROmorphone HCl 1 MG/ML SYRINGE IVPUSH (20:08)
[2024-11-03 20:43] VITALS: BP 105/66; PULSE 64; RESP 18; TEMP 36.6; O2SAT 98
== END 2024-11-03 20:54 | disposition home or self-care (01) ==
PROVIDERS: Physician Assistant; Emergency Provider Emergency Medicine; PCP Student in an Organized Health Care Education/Training Program
DX: N83.202 Unspecified ovarian cyst, left side (principal); M54.50 Low back pain, unspecified; R10.2 Pelvic and perineal pain
CPT/HCPCS: 36415; 74177; 76775; 76830; 76856; 80048; 80076; 81003; 81025; 83690; 83735; 84702; 85025; 96361; 96374; 96375; 99284; J1171; J2270; Q9967

== ENCOUNTER → 2024-11-03 15:55 | Outpatient (BNV) | payer OTHER, SELFPAY | PROVIDERS: Emergency Provider Emergency Medicine; PCP Student in an Organized Health Care Education/Training Program; Visit Provider Radiology Diagnostic Radiology | DX: N83.292 Other ovarian cyst, left side (principal); R10.814 Left lower quadrant abdominal tenderness | CPT/HCPCS: 74177; 76775; 76830; 76856 ==